=== PATIENT | male | born 1960 | race Caucasian/White ===

== ENCOUNTER → 2024-10-21 | Outpatient (CLI) | payer MEDICARE ==
--- NOTE | 2024-10-21 15:34 | XR ---
EXAMINATION TYPE: XR shoulder complete BILAT DATE OF EXAM: 10/21/2024 3:25 PM COMPARISON: None. CLINICAL INDICATION: Male, 64 years old with history of M19.012 XR SHOULDER OSTEOARTHRITIS DOLORES, pain TECHNIQUE: 2 views of the bilateral shoulders are obtained. FINDINGS: There is no acute fracture/dislocation evident in either shoulder. Symmetric mild/moderate narrowing and spurring of both acromioclavicular joints. Glenohumeral joints are maintained bilatera lly. There is suggestion of suspicious roughly 4.8 cm left hilar mass that warrants follow-up. IMPRESSION: As above. Possible left midlung mass or neoplasm. Advise follow-up chest CT to further ev aluate. [facility], , 10/21/2024 3:31 PM
== END | disposition home or self-care (01) ==
LOC: RADXRMAIN 15:13
PROVIDERS: ATTEND Family Medicine
DX: M19.012 Primary osteoarthritis, left shoulder (principal)